=== PATIENT | male | born 2000 | race American Indian/Alaskan Native ===

== ENCOUNTER 2019-08-24 00:45 | Emergency (ER) | payer SELFPAY ==
[2019-08-24] MEDS ORDERED: SODIUM CHLORIDE 0.9% 1000 ML 1,000 ML IV ONE (01:09)
[2019-08-24] MEDS ORDERED: SODIUM CHLORIDE 0.9% 1000 ML 1,000 ML ONE (01:09)
--- NOTE | 2019-08-24 01:12 | Emergency Department Report ---
ED Medical Clearance HPI - General Chief complaint: Psych Stated complaint: DRUG ABUSE/DETOX Time Seen by Provider: 08/24/19 01:09 Source: patient Mode of arrival: Ambulatory Limitations: No Limitations - History of Present Illness Initial comments: Patient is a 19-year-old male that presents emergency room with complaints of desiring detox from heroin. Patient states he wants some help getting off heroin. Patient states that he used heroin for 5 years. Patient states that his last time he used was this morning. Complaint: medical clearance request -: Sudden Reason for Medical Clearance: intoxication Place: home Alledged Intoxication: No Compliant with Home Medications: No Traumatic Symptoms: denies traumatic injury Associated Symptoms: denies other symptoms. denies: chest pain, shortness of breath, palpitations, diaphoresis, confusion, cough, fever/chills, headaches, anorexia, malaise, nausea/vomiting, rash, seizure, syncope, weakness Treatments Prior to Arrival: none Allergies/Adverse reactions: Allergies Allergy/AdvReac Type Severity Reaction Status Date / Time ibuprofen Allergy Unknown Verified 08/24/19 00:49 procaine [From Novocain] Allergy Unknown Verified 08/24/19 00:49 ED Review of Systems ROS: Stated complaint: DRUG ABUSE/DETOX Other details as noted in HPI Constitutional: denies: chills, fever Eyes: denies: eye pain, eye discharge, vision change ENT: denies: ear pain, throat pain Respiratory: denies: cough, shortness of breath, wheezing Cardiovascular: denies: chest pain, palpitations Endocrine: no symptoms reported Gastrointestinal: denies: abdominal pain, nausea, diarrhea Genitourinary: denies: urgency, dysuria Musculoskeletal: denies: back pain, joint swelling, arthralgia Skin: denies: rash, lesions Neurological: denies: headache, weakness, paresthesias Psychiatric: denies: anxiety, depression Hematological/Lymphatic: denies: easy bleeding, easy bruising ED Past Medical Hx - Past Medical History Previous Medical History?: Yes Hx Asthma: Yes - Surgical History Past Surgical History?: Yes Additional Surgical History: hernia - Family History Family history: no significant - Social History Smoking Status: Current Every Day Smoker Substance Use Type: Heroin ED Physical Exam - General Limitations: No Limitations General appearance: alert, in no apparent distress - Head Head exam: Present: atraumatic, normocephalic - Eye Eye exam: Present: normal appearance - ENT ENT exam: Present: mucous membranes moist - Neck Neck exam: Present: normal inspection - Respiratory Respiratory exam: Present: normal lung sounds bilaterally. Absent: respiratory distress - Cardiovascular Cardiovascular Exam: Present: regular rate, normal rhythm, tachycardia. Absent: systolic murmur, diastolic murmur, rubs, gallop - GI/Abdominal GI/Abdominal exam: Present: soft, normal bowel sounds - Rectal Rectal exam: Present: deferred - Extremities Exam Extremities exam: Present: normal inspection - Back Exam Back exam: Present: normal inspection - Neurological Exam Neurological exam: Present: alert, oriented X3 - Psychiatric Psychiatric exam: Present: normal affect, normal mood - Skin Skin exam: Present: warm, dry, intact, normal color. Absent: rash ED Course Vital Signs 08/24/19 08/24/19 08/24/19 00:56 01:19 01:22 Temperature 98.6 F Pulse Rate 136 H 104 H Respiratory 18 15 15 Rate Blood Pressure 144/94 Blood Pressure 122/86 [Left] O2 Sat by Pulse 100 100 99 Oximetry 08/24/19 08/24/19 02:02 02:20 Temperature Pulse Rate 88 86 Respiratory 13 15 Rate Blood Pressure Blood Pressure 94/58 89/52 [Left] O2 Sat by Pulse 99 100 Oximetry - Reevaluation(s) Reevaluation #1: Patient's heart rate is better. Patient ambulatory in ER. Patient urinating without difficulties. I discussed all results and clinical findings with patient. I discussed plan of care with patient. Patient agrees with plan of care. Patient is stable for discharge. Patient will be discharged home. Patient given discharge instructions. Patient voiced understanding of discharge instructions. 08/24/19 02:27 ED Medical Decision Making - Lab Data Result diagrams: 08/24/19 01:16 08/24/19 01:16 - Medical Decision Making Patient is a 19-year-old male that presents emergency room for assistance with detox. Patient desires to go to detox. Patient came in for medical clearance. Patient states he is a heroin user. Patient states he also used cocaine the night prior to. Patient denies chest pain. Patient denies shortness of breath. Patient found to be tachycardic. Patient given fluids and his heart rate responded well. Patient's labs are essentially unremarkable. Patient is medically cleared to go to detox as an outpatient. - Differential Diagnosis Tachycardia, drug abuse, medical clearance for detox. ED Disposition Clinical Impression: Medical clearance for psychiatric admission, Desire for detoxification, Drug abuse, Tachycardia Disposition: DC-01 TO HOME OR SELFCARE Is pt being admited?: No Does the pt Need Aspirin: No Condition: Stable Instructions: Narcotic Abuse (ED), Medical Clearance for Substance Abuse Treatment (ED) Additional Instructions: Patient to follow-up with primary care in 2 to 3 days. Patient to be discharged from the ER and go directly to a treatment facility. Patient to rest. Patient to increase water. Patient to take Tylenol or ibuprofen as needed for pain. Patient to avoid drug use. Patient to return to the ER if condition worsens, changes or new symptoms arise. Referrals: PRIMARY CARE, [Primary Care Provider] - 2-3 Days Time of Disposition: 02:27
[2019-08-24 01:26] LABS: Bilirubin,Urine NEG (Negative); Blood,Urine NEG (Negative); Color,Urine Yellow (Yellow); Hyaline Casts,Urine 2 /LPF; Mucus,Urine 3+ /HPF
[2019-08-24 01:32] LABS: Amphetamine Screen,Urine PRESUMPTIVE NEGATIVE; Benzodiazepines Screen,Urine PRESUMPTIVE NEGATIVE; Cannabinoid Screen,Urine PRESUMPTIVE NEGATIVE; Methadone Screen,Urine PRESUMPTIVE NEGATIVE
[2019-08-24 01:44] LABS: BUN/Creatinine Ratio 10; Blood Urea Nitrogen 7 mg/dL (9-20); Calcium 9.5 mg/dL (8.4-10.2); Hemolysis Index 4
[2019-08-24 01:54] LABS: Cocaine Screen,Urine PRESUMPTIVE POSITIVE; Opiate Screen,Urine PRESUMPTIVE POSITIVE
[2019-08-24 01:55] LABS: Basophils # (Auto) 0.1 K/mm3 (0.0-0.1); Basophils % (Auto) 0.7 % (0.0-1.8); Eosinophils % (Auto) 0.4 % (0.0-4.3); Hematocrit 44.3 % (35.5-45.6); Hemoglobin 15.4 gm/dl (11.8-15.2); Lymphocytes # (Auto) 2.7 K/mm3 (1.2-5.4); Mean Corpuscular HGB Conc 35 % (32-34); Mean Corpuscular Volume 92 fl (84-94); Monocytes # (Auto) 0.7 K/mm3 (0.0-0.8); Monocytes % (Auto) 7.9 % (0.0-7.3); Platelet Count 263 K/mm3 (140-440); Red Blood Count 4.83 M/mm3 (3.65-5.03); Red Cell Distribution Width 14.7 % (13.2-15.2)
[2019-08-24 02:21] VITALS: BP 89/52
== END 2019-08-24 02:38 | disposition home or self-care (01) ==
LOC: ED 00:45 → EEVIPCON 00:45 → ED 02:38
DX: Z04.6 Encounter for general psychiatric examination, requested by authority (principal); F19.10 Other psychoactive substance abuse, uncomplicated; R00.0 Tachycardia, unspecified; J45.909 Unspecified asthma, uncomplicated; F17.200 Nicotine dependence, unspecified, uncomplicated; Z98.890 Other specified postprocedural states; Z88.8 Allergy status to other drugs, medicaments and biological substances
CPT/HCPCS: 36415; 80048; 80307; 81001; 85025; 99284; J7030; 80320; G0480

== ENCOUNTER 2021-08-14 16:19 | Emergency (ER) | payer SELFPAY ==
[2021-08-14 16:26] VITALS: BP 116/80
== END 2021-08-14 19:17 | disposition left against medical advice (07) ==
LOC: ED 16:19
DX: F19.90 Other psychoactive substance use, unspecified, uncomplicated (principal); Z53.21 Procedure and treatment not carried out due to patient leaving prior to being seen by health care provider